=== PATIENT | female | born 1980 | race Two or more races ===

== ENCOUNTER 2019-02-15 07:56 | Emergency (ER) | payer SELFPAY ==
[~2019-02-15] VITALS: Ht 157.5 cm; Wt 136.0 kg
[2019-02-15] MEDS ORDERED: ACETAMINOPHEN 500MG TABLET PO ONE (08:30)
[2019-02-15] MEDS ORDERED: IBUPROFEN 800MG TABLET PO ONE (08:30)
[2019-02-15 10:18] VITALS: BP 154/89
== END 2019-02-15 10:19 | disposition home or self-care (01) ==
LOC: ER 07:56
DX: S13.4XXA Sprain of ligaments of cervical spine, initial encounter (principal); M54.5 Low back pain; R20.0 Anesthesia of skin; R03.0 Elevated blood-pressure reading, without diagnosis of hypertension; V47.5XXA Car driver injured in collision with fixed or stationary object in traffic accident, initial encounter; Y93.89 Activity, other specified; Y92.410 Unspecified street and highway as the place of occurrence of the external cause
CPT/HCPCS: 81025; 99284